=== PATIENT | female | born 1960 | race Caucasian/White ===

== ENCOUNTER → 2019-11-27 10:54 | Outpatient (CLI) | payer OTHER, SELFPAY ==
[2019-11-27 16:19] LABS: CRP < 2.90 mg/L (0.0-3.0)
[2019-11-30 14:07] LABS: Endomysial Antibody IgA Negative (Negative); Immunoglobulin A 78 mg/dL (87-352)
[2019-11-30 14:30] LABS: t-Transglutaminase IgA <2 U/mL (0-3)
== END ==
PROVIDERS: PCP Internal Medicine; Referring Provider Internal Medicine Gastroenterology; Visit Provider Internal Medicine Gastroenterology
DX: R19.7 Diarrhea, unspecified (principal)
CPT/HCPCS: 36415; 82784; 83516; 86140; 86255

== ENCOUNTER → 2019-12-04 10:12 | Outpatient (CLI) | payer OTHER, SELFPAY | PROVIDERS: PCP Internal Medicine; Referring Provider Internal Medicine Gastroenterology; Visit Provider Internal Medicine Gastroenterology | DX: K58.0 Irritable bowel syndrome with diarrhea (principal) | CPT/HCPCS: 36415; 83516 ==